=== PATIENT | male | born 2000 | race Caucasian/White ===

== ENCOUNTER 2023-10-22 11:00 | Outpatient (AMB) | payer OTHER, SELFPAY ==
--- NOTE | 2023-10-22 11:01 | MHC.OFFWIV ---
Intake Vital Signs 10/22/23 11:03 Height 5 ft 10 in Weight 181 lb BMI 26.0 BP 120/70 Blood Pressure Location Lt brachial Position Sitting Temp 97.9 F Temp Source Temporal Artery Scan Intake Visit Reasons: [employer]/Sore Throat(lobby masked) Intake Note: pt is here today for sore throat started 2 weeks ago Patient Tobacco Use Status: Never used Tobacco Allergies No Known Allergies Allergy (Verified 10/22/23 11:05) Do you need a note to return to daycare/school/sports/work: No HPI HPI Comments History of Present Illness Details Patient is a 23-year-old male in today for a sick visit. He states that he has symptoms of cough, headache, sore throat for the past week. Offers subjective fever. Has not tried taking any medication for relief. No sick contacts. He states that over the past 2-3 days his sore throat has gotten so bad that it is hard for him to eat food. Will attempt that strep swab in office not able to obtain due to patient's hyperactive gag reflex. Was able to obtain in office upper respiratory swab. Patient denies shortness of breath, chest pain, dizziness, numbness, nausea, vomiting, diarrhea. PFSH Social History Patient Tobacco Use Status: Never used Tobacco Physical Exam Vital Signs: Last Vital Signs Temp 97.9 F 10/22/23 11:03 BP 120/70 10/22/23 11:03 BMI result Body Mass Index 26.0 Vital signs reviewed stable. Const Other: Appearance: Alert.? Oriented X3.? No acute distress.? Head: Normocephalic, atraumatic, Eyes: Pupils equal, round and reactive to light.? ENT: Pharynx erythema, pus on tonsils bilaterally. TM intact and pearly [place]. Neck: Normal inspection.? Neck supple.?Full ROM. CVS: Normal heart rate and rhythm.? Pulses normal.? Respiratory: No respiratory distress.? Breath sounds normal.? Neuro: Oriented X 3.? No motor deficit.? No sensory deficit. CN 2-12 intact Patient able to tolerate drinking water in office. Results AMB Rapid Strep AMB Rapid Strep Negative Last Edit by Yanique Plaza CMA on 10/22/23 11:31 Assessment & Plan Assessment & Plan (1) Strep throat: Comment: Will order Augmentin, prednisone, cepacol throat drops. Patient has been instructed on how to take the medication properly. He has been educated on signs of worsening symptoms and when to report back to the walk-in or when to present to the ED. Code(s): J02.0 - Streptococcal pharyngitis Plan: Take your medications as prescribed. If you were prescribed antibiotics today, it is important that you take your medication to their entirety, do not skip any doses, do not finish them early. Follow-up with your primary care provider this week. Return to the emergency department with new or worsening symptoms. Such as fevers, chills, chest pain, shortness of breath, nausea, vomiting, dizziness, headache, vision changes, lethargy In case of emergency call 911 Plan Follow-up with PCP. Orders: Orders SARS-CoV2/FLU/RSV Today J06.9 - Acute upper respiratory infection, unspecified AMB Rapid Strep Screen Today Z13.9 - Encounter for screening, unspecified Medications: New amoxicillin-pot clavulanate 875-125 mg 1 tab PO Q12H 20 tabs 0RF prednisone 40 mg (2 x 20 mg) PO DAILY 10 tabs 0RF benzocaine-menthol 15-2.6 mg (Cepacol Sore Throat (benzocaine-menthol)) 1 dar mucous membrane Q2-4H PRN 16 ea 0RF pain Coding Level of Care Code Est Pt Level 3 (54747) Diagnoses Strep throat J02.0
[2023-10-22 11:03] VITALS: BP 120/70; TEMP 36.6; BMI 26.0
== END 2023-10-22 12:06 | disposition home or self-care (01) ==
PROVIDERS: Visit Provider Nurse Practitioner Primary Care
DX: J02.0 Streptococcal pharyngitis (principal); J02.9 Acute pharyngitis, unspecified
CPT/HCPCS: 87880; 99213

== ENCOUNTER 2023-10-22 14:14 | Outpatient (REF) | payer OTHER, SELFPAY ==
[2023-10-22 14:55] LABS: Influenza A PCR NEGATIVE (Negative); Influenza B PCR NEGATIVE (Negative); Resp Syncy Virus RNA Qual PCR NEGATIVE (Negative); SARS COV2 PCR INHOUSE NEGATIVE (Negative)
== END 2023-10-22 14:15 | disposition home or self-care (01) ==
LOC: HO.LNP 14:14
PROVIDERS: Visit Provider Nurse Practitioner Primary Care
DX: Z11.52 Encounter for screening for COVID-19 (principal); J06.9 Acute upper respiratory infection, unspecified
CPT/HCPCS: 0241U